=== PATIENT | female | born 1985 | race Caucasian/White ===

== ENCOUNTER 2016-12-07 14:02 | Emergency (ER) | payer OTHER ==
[~2016-12-07] VITALS: Ht 175.3 cm; Wt 124.5 kg
[~2016-12-07 14:02] MED LIST: BENADRYL50 MG PO; IBUPROFEN800 MG PO; LEXAPRO10 MG PO; NEURONTIN400 MG PO; NORCO 5/3251 TABLET PO; PERCOCET 5/31 TABLET PO; REGLAN10 MG PO; ZOFRAN ODT4 MG PO
[2016-12-07] MEDS ORDERED: PREDNISONE50 MG PO (17:42)
[2016-12-07] MEDS ORDERED: EYE DROP15 ML BOTH EYES (17:44)
[2016-12-07] MEDS ORDERED: LUBRICANT EYE D10 ML BOTH EYES (17:47)
[2016-12-07 18:12] VITALS: BP 133/67
== END 2016-12-07 18:14 | disposition home or self-care (01) ==
LOC: EME 14:02
DX: G51.0 Bell's palsy (principal); J45.909 Unspecified asthma, uncomplicated
CPT/HCPCS: 70450; 99281; 99284; J7512

== ENCOUNTER 2017-05-17 11:55 | Emergency (ER) | payer OTHER ==
[~2017-05-17] VITALS: Ht 172.7 cm; Wt 122.0 kg
[~2017-05-17 11:55] MED LIST changes: +EYE DROP15 ML BOTH EYES; +LUBRICANT EYE D10 ML BOTH EYES; +PREDNISONE50 MG PO
[2017-05-17 12:44] LABS: ADD MIUA? YES; BILIRUBIN NEGATIVE; BLOOD SMALL; COLOR YELLOW ((YELLOW)); GLUCOSE (STRIP) NEGATIVE; KETONES NEGATIVE; LEUKOCYTES NEGATIVE; NITRITE NEGATIVE; PROTEIN (STRIP) NEGATIVE; SPECIFIC GRAVITY 1.025 (1.000-1.030); UROBILINOGEN 0.2 MG/DL (0.2-1.0)
[2017-05-17 12:51] LABS: BACTERIA RARE /HPF; EPITHELIAL CELLS 1+ /HPF; MUCUS TRACE /LPF; RED BLOOD CELLS 0-5 /HPF (0-5); UCUL ADDED? NO; WHITE BLOOD CELLS 0-5 /HPF (0-5)
[2017-05-17 12:54] LABS: HEMATOCRIT 44.3 % (36.0-46.0); MCHC 33.4 G/DL (30.0-36.0); MCV 92.9 FL (83-99); RBC DIS.WIDTH-CV 13.1 % (11.8-14.6); RBC DIS.WIDTH-SD 44.3 % (39-53); RED BLOOD COUNT 4.77 M/uL (3.80-5.20); WHITE BLOOD COUNT 6.1 K/uL (4.1-10.2)
[2017-05-17 13:01] LABS: MEAN PLAT.VOLUME 12.4 uM^3 (9.5-12.4); PLATELET COUNT 216 K/uL (156-360)
[2017-05-17 13:03] LABS: CHLORIDE 109 mEq/L (99-109); POTASSIUM 3.9 mEq/L (3.7-5.4); SODIUM 139 mEq/L (136-147)
[2017-05-17 13:04] LABS: GLUCOSE 84 mg/dL (70-99)
[2017-05-17 13:06] LABS: ANION GAP 8 MEQ/L (2-14)
[2017-05-17 13:08] LABS: GFR ESTIMATE (CALCULATED) > 59 mL/min/
[2017-05-17 13:09] LABS: UREA NITROGEN (BUN) 17 mg/dL (9-23)
[2017-05-17 13:17] LABS: QUANTITATIVE HCG < 4.0 MIU/ML
[2017-05-17] MEDS ORDERED: FLEXERIL10 MG PO (15:43)
[2017-05-17] MEDS ORDERED: MOTRIN800 MG PO (15:43)
[2017-05-17] MEDS ORDERED: LIDODERM 5% P1 PATCH TD (15:43)
[2017-05-17] MEDS ORDERED: PERCOCET 5/31 TABLET PO (15:43)
[2017-05-17 16:34] VITALS: BP 137/90
== END 2017-05-17 16:36 | disposition home or self-care (01) ==
LOC: EME 11:55
DX: R10.9 Unspecified abdominal pain (principal); R31.9 Hematuria, unspecified; R11.2 Nausea with vomiting, unspecified; M54.5 Low back pain; R35.0 Frequency of micturition; R19.7 Diarrhea, unspecified
CPT/HCPCS: 74176; 80048; 81003; 84702; 85027; 99281; 99284; J1885